=== PATIENT | female | born 1995 | race Caucasian/White ===

== ENCOUNTER 2022-08-06 05:21 | Inpatient (IN) ==
[2022-08-06] MEDS ORDERED: LACTATED RINGERS 1,000 ML IV SCH ×2 (06:15→06:30)
[2022-08-06] MEDS ORDERED: FAMOTIDINE 20 MG/2 ML VIAL IV ONE (06:23)
[2022-08-06] MEDS ORDERED: miSOPROStoL 200 MCG TABLET RECTAL PRN (06:23)
[2022-08-06] MEDS ORDERED: CLINDAMYCIN INJ 900 MG/50 ML PREMIX IV ONE (06:23)
[2022-08-06] MEDS ORDERED: CITRIC ACID/SODIUM CITRATE 30 ML UDCUP PO ONE (06:23)
[2022-08-06] MEDS ORDERED: OXYTOCIN/LR 20 UNIT/1,000 ML BAG IV ONE ×3 (06:23→12:27)
[2022-08-06] MEDS ORDERED: CARBOPROST TROMETHAMINE 250 MCG/ML AMP IM PRN (06:23)
[2022-08-06] MEDS ORDERED: METHYLERGONOVINE 0.2 MG/1 ML AMP IM PRN (06:23)
[2022-08-06] MEDS ORDERED: TRANEXAMIC ACID 1,000 MG in SODIUM CHLORIDE 0.9% 100 ML IV PRN (06:23)
[2022-08-06 06:48] LABS: Basophils % 0.3 % (0.0-0.8); Eosinophils % 0.4 % (0.00-10.9); Hematocrit 25.9 VOL% (35.7-47.0); Hemoglobin 7.6 GM/DL (12.0-16.0); Immature Granulocytes % 1.2 %; Immature Granulocytes Absolute 0.09 #; Lymphocytes # 1.3 10*3/uL (1.4-4.0); Lymphocytes % 16.8 % (21.3-54.2); Mean Corpuscular HGB Conc 29.3 GM/DL (32-36); Mean Corpuscular Volume 71.3 FL (87-102); Mean Platelet Volume 11.1 FL (9.6-12.0); Monocytes # 0.4 10*3/uL (0.11-0.8); Monocytes % 5.7 % (1.7-12.7); Neutrophils % 75.6 % (38.7-73.9); Platelet Count 164 T/CUMM (130-400); Red Blood Count 3.63 MC/CUMM (3.8-5.5); Red Cell Distribution Width 16.2 % (9.3-17.3); White Blood Count 7.7 T/CUMM (4-12)
[2022-08-06] MEDS ORDERED: buprenorphine HCL 0.3 MG/ML VIAL ONE (07:47)
[2022-08-06] MEDS ORDERED: PHENYLEPHRINE 1 MG/10 ML SYRINGE IV ONE (07:47)
[2022-08-06] MEDS ORDERED: ONDANSETRON 4 MG/2 ML VIAL ONE (07:47)
[2022-08-06] MEDS ORDERED: BUPIVACAINE MPF 0.5% 30 ML VIAL ONE (07:47)
[2022-08-06] MEDS ORDERED: TRANEXAMIC ACID 1,000 MG/10 ML VIAL ONE (08:47)
[2022-08-06] MEDS ORDERED: miSOPROStoL 200 MCG TABLET ONE (08:47)
[2022-08-06] MEDS ORDERED: METHYLERGONOVINE 0.2 MG/1 ML AMP ONE (08:48)
[2022-08-06] MEDS ORDERED: SODIUM CHLORIDE 0.9% 0 ML IV ONE (08:48)
[2022-08-06] MEDS ORDERED: CARBOPROST TROMETHAMINE 250 MCG/ML AMP IM ONE (08:48)
[2022-08-06] MEDS ORDERED: propofoL 200 MG/20 ML VIAL IV ONE (10:17)
[2022-08-06] MEDS ORDERED: KETOROLAC 30 MG/1 ML VIAL IV SCH (10:30)
[2022-08-06] MEDS ORDERED: ACETAMINOPHEN 500 MG TABLET PO SCH (10:30)
[2022-08-06 11:14] LABS: Cord Venous Blood HCO3 21.1 MMOL/L; Cord Venous Blood PCO2 41.1 MMHG; Cord Venous Blood PO2 19.7
[2022-08-06 11:20] LABS: Mucus,Urine Occasional /LPF (Occasional); RBC,Urine 1 /HPF (0-4); Squamous Epithelial Cell,Urine Occasional /HPF (0-10)
[2022-08-06 11:21] LABS: Bilirubin,Urine Negative (Negative); Blood, Urine Negative (Negative); Glucose,Urine (UA) Negative (Negative); Ketones,Urine Negative (Negative); Nitrite,Urine Negative (Negative); Protein,Urine Negative (Negative); Urine Appearance Clear (Clear); Urine Color Yellow (Yellow); Urine Urobilinogen 0.2 eU/dL (<2.0); Urine pH 7.5 (4.5-8.0)
[2022-08-06] MEDS ORDERED: MAGNESIUM HYDROXIDE SUSP 30 ML UDCUP PO PRN (16:59)
[2022-08-06] MEDS: KETOROLAC 30 MG/1 ML VIAL IV SCH (18:17)
[2022-08-06] MEDS: CLINDAMYCIN INJ 900 MG/50 ML PREMIX IV SCH (18:19)
[2022-08-06] MEDS: ACETAMINOPHEN 500 MG TABLET PO SCH (18:19)
[2022-08-06] MEDS: DOCUSATE SODIUM 100 MG CAPSULE PO SCH (20:59)
[2022-08-06] MEDS: IRON (CARBONYL)/VIT C/B12/FA TABLET PO SCH ×2 (21:00→21:11)
[2022-08-07] MEDS: ACETAMINOPHEN 500 MG TABLET PO SCH ×2 (00:30→05:34)
[2022-08-07] MEDS: KETOROLAC 30 MG/1 ML VIAL IV SCH ×2 (00:31→05:36)
[2022-08-07] MEDS: CLINDAMYCIN INJ 900 MG/50 ML PREMIX IV SCH (02:52)
[2022-08-07 05:12] LABS: Basophils % 0.2 % (0.0-0.8); Eosinophils # 0.1 10*3/uL (0.0-0.87); Eosinophils % 0.8 % (0.00-10.9); Hematocrit 24.8 VOL% (35.7-47.0); Immature Granulocytes % 0.8 %; Immature Granulocytes Absolute 0.07 #; Lymphocytes # 0.9 10*3/uL (1.4-4.0); Lymphocytes % 10.8 % (21.3-54.2); Mean Corpuscular HGB Conc 28.2 GM/DL (32-36); Mean Corpuscular Volume 73.8 FL (87-102); Mean Platelet Volume 10.9 FL (9.6-12.0); Monocytes # 0.4 10*3/uL (0.11-0.8); Monocytes % 4.4 % (1.7-12.7); Platelet Count 141 T/CUMM (130-400); Red Blood Count 3.36 MC/CUMM (3.8-5.5); Red Cell Distribution Width 16.4 % (9.3-17.3); White Blood Count 8.7 T/CUMM (4-12)
[2022-08-07] MEDS ORDERED: HYDROCORTISONE 2.5% RECTAL CREAM 30 GM TUBE TOP PRN (09:09)
[2022-08-07] MEDS ORDERED: OXYTOCIN/LR 20 UNIT/1,000 ML BAG IV ONE (09:09)
[2022-08-07] MEDS ORDERED: BISACODYL 10 MG SUPP RECTAL PRN (09:09)
[2022-08-07] MEDS ORDERED: BENZOCAINE 20%/MENTHOL 0.5% SPRAY 56 GM CAN TOP PRN (09:09)
[2022-08-07] MEDS ORDERED: RHO(D) IMMUNE GLOBULIN 300 MCG SYRINGE IM ONE (09:09)
[2022-08-07] MEDS ORDERED: DIPH/TET/ACEL PERT BOOSTER VACCINE 0.5 ML VIAL IM ONE (09:09)
[2022-08-07] MEDS ORDERED: LANOLIN 50% CREAM 0.3 OZ TUBE TOP PRN (09:09)
[2022-08-07] MEDS ORDERED: ACETAMINOPHEN 325 MG TABLET PO PRN (09:09)
[2022-08-07] MEDS ORDERED: ONDANSETRON 4 MG/2 ML VIAL IV PRN (09:09)
[2022-08-07] MEDS ORDERED: MEASLES/MUMPS/RUBELLA VACCINE 0.5 ML VIAL SUBCUT ONE (09:09)
[2022-08-07] MEDS ORDERED: oxyCODONE/ACETAMINOPHEN 5-325 MG TABLET PO PRN ×2 (09:09)
[2022-08-07] MEDS ORDERED: IBUPROFEN 800 MG TABLET PO PRN (09:09)
[2022-08-07] MEDS ORDERED: WITCH HAZEL PADS 100/JAR TOP PRN (09:09)
[2022-08-07] MEDS: IRON (CARBONYL)/VIT C/B12/FA TABLET PO SCH (09:54)
[2022-08-07] MEDS: DOCUSATE SODIUM 100 MG CAPSULE PO SCH ×2 (09:55→20:09)
[2022-08-07] MEDS ORDERED: DOCUSATE SODIUM 100 MG CAPSULE PO SCH (21:00)
[2022-08-08 05:49] LABS: Basophils % 0.1 % (0.0-0.8); Eosinophils # 0.1 10*3/uL (0.0-0.87); Eosinophils % 0.5 % (0.00-10.9); Hematocrit 28.2 VOL% (35.7-47.0); Hemoglobin 8.1 GM/DL (12.0-16.0); Immature Granulocytes % 0.9 %; Immature Granulocytes Absolute 0.09 #; Lymphocytes # 1.3 10*3/uL (1.4-4.0); Lymphocytes % 12.8 % (21.3-54.2); Mean Corpuscular HGB Conc 28.7 GM/DL (32-36); Mean Platelet Volume 11.4 FL (9.6-12.0); Monocytes # 0.4 10*3/uL (0.11-0.8); Monocytes % 4.5 % (1.7-12.7); Neutrophils % 81.2 % (38.7-73.9); Platelet Count 207 T/CUMM (130-400); Red Blood Count 3.81 MC/CUMM (3.8-5.5); Red Cell Distribution Width 16.9 % (9.3-17.3); White Blood Count 9.8 T/CUMM (4-12)
[2022-08-08 08:36] VITALS: BP 107/70
[2022-08-08] MEDS: IRON (CARBONYL)/VIT C/B12/FA TABLET PO SCH (08:50)
[2022-08-08] MEDS: DOCUSATE SODIUM 100 MG CAPSULE PO SCH (08:50)
== END 2022-08-08 11:12 | disposition home or self-care (01) | DRG 788 ==
LOC: N.LD 05:21 → N.OB 14:32
PROVIDERS: ADMIT Specialist; ATTEND Specialist
PROC: LDCSECT (ICD-10-PCS; 2022-08-06 10:30)